=== PATIENT | female | born 1955 | race Caucasian/White ===

== ENCOUNTER → 2017-09-09 | Outpatient (CLI) | payer OTHER | LOC: BRMIMAGING 13:25 | DX: Z13.820 Encounter for screening for osteoporosis (principal); M81.0 Age-related osteoporosis without current pathological fracture ==

== ENCOUNTER → 2018-09-11 | Outpatient (CLI) | payer OTHER | LOC: BRMIMAGING 13:16 | DX: M81.8 Other osteoporosis without current pathological fracture (principal) ==

== ENCOUNTER → 2018-11-03 | Outpatient (CLI) | payer OTHER | LOC: BRMIMAGING 11:05 | DX: M81.0 Age-related osteoporosis without current pathological fracture (principal) | CPT/HCPCS: 72100-PO ==